=== PATIENT | male | born 1950 | race Caucasian/White ===

== ENCOUNTER 2022-11-23 07:54 | Outpatient (CLI) | payer BC ==
[2022-11-23] MEDS ORDERED: Magnevist 469MG/ML 20 ML VIAL ONE (09:55)
== END 2022-11-23 07:55 | disposition home or self-care (01) ==
LOC: CSHMRI 07:54
PROVIDERS: ATTEND Urology
DX: C61 Malignant neoplasm of prostate (principal)
CPT/HCPCS: 72197; 82565